=== PATIENT | female | born 1970 | race Hispanic/Latino ===

== ENCOUNTER 2025-03-04 06:28 | Day surgery (SDC) | payer OTHER ==
[~2025-03-04] VITALS: Ht 165.1 cm; Wt 54.9 kg
[2025-03-04] VITALS (10 sets, daily range): BP systolic 112–129; BP diastolic 61–77; PULSE 66–85; RESP 15–16; TEMP 97.1–207.1
[2025-03-04] MEDS ORDERED: proPOFol 10 MG/ML 20ML VIAL IV ONE (07:29)
[2025-03-04] MEDS ORDERED: LIDOCAINE PF 100MG/5ML (2%) SYRINGE 5ML ONE (07:30)
[2025-03-04] MEDS ORDERED: SUCR1TAB2 PO (07:37)
[2025-03-04] MEDS ORDERED: MYCOPHENOLATE PO (07:37)
[2025-03-04] MEDS ORDERED: PREG25CA19 PO (07:37)
[2025-03-04] MEDS ORDERED: TYLENOL CODEINE PO (07:37)
[2025-03-04] MEDS ORDERED: LINA290C PO (07:37)
[2025-03-04] MEDS ORDERED: ESOM10SU PO (07:37)
[2025-03-04] MEDS ORDERED: BUDE10.2 IH (07:37)
[2025-03-04] MEDS ORDERED: ONDA-104 PO (07:37)
[2025-03-04] MEDS ORDERED: CITA-107 PO (07:37)
[2025-03-04] MEDS ORDERED: FAMO40TA7 PO (07:37)
[2025-03-04] MEDS ORDERED: LACT-441 PO (07:37)
[2025-03-04] MEDS ORDERED: ASPI-1197 PO (07:37)
[2025-03-04] MEDS ORDERED: URSO500T10 PO (07:37)
[2025-03-04] MEDS: 0.9%NACL 1000ML 1,000 ML IV ONE (07:41)
== END 2025-03-04 09:27 | disposition home or self-care (01) ==
LOC: ENDO 06:28 → DAH 06:28 → ENDO 09:27
PROVIDERS: ATTEND Surgery
DX: R10.13 Epigastric pain (principal); K21.00 Gastro-esophageal reflux disease with esophagitis, without bleeding; K94.23 Gastrostomy malfunction; K59.04 Chronic idiopathic constipation; M34.1 CR(E)ST syndrome; K31.84 Gastroparesis; K28.9 Gastrojejunal ulcer, unspecified as acute or chronic, without hemorrhage or perforation; B37.81 Candidal esophagitis; M19.90 Unspecified osteoarthritis, unspecified site; I10 Essential (primary) hypertension; K21.9 Gastro-esophageal reflux disease without esophagitis; M79.7 Fibromyalgia; Z90.710 Acquired absence of both cervix and uterus; Z98.84 Bariatric surgery status; Z79.899 Other long term (current) drug therapy
CPT/HCPCS: 43239; J7030 ×2; J2003; J2704; A4620; A4215 ×2; A4223; A4657; A7002; A4222; A4221; A4663; A4606; J3490